=== PATIENT | male | born 1955 | race Caucasian/White ===

== ENCOUNTER 2022-05-06 06:44 | Inpatient (IN) ==
[2022-05-06] MEDS ORDERED: *HR* Propofol 200 MG/20 ML VIAL IVP ONE (07:27)
[2022-05-06] MEDS ORDERED: *HR* Midazolam HCl 2 MG/2 ML VIAL ONE (07:27)
[2022-05-06] MEDS ORDERED: *HR* FentaNYL (PF) 100 MCG/2 ML VIAL ONE (07:27)
[2022-05-06] MEDS ORDERED: Lidocaine -MPF 2% 5 ML VIAL ONE (07:31)
[2022-05-06] MEDS ORDERED: *HR* Rocuronium Bromide 50 MG/5 ML VIAL ONE ×2 (07:31→08:53)
[2022-05-06] MEDS ORDERED: *HR* Succinylcholine 200 MG/10 ML VIAL IVP ONE (07:31)
[2022-05-06] MEDS ORDERED: Ketamine HCL *QUVA* 50mg (1mL) SYRINGE ONE (07:32)
[2022-05-06] MEDS ORDERED: Acetaminophen IV 1,000 MG/100 ML BAG IVPB ONE ×2 (07:32→07:55)
[2022-05-06] MEDS ORDERED: *HR* OxyCODONE Immed Rel 5 MG TABLET PO PRN ×2 (07:40→15:32)
[2022-05-06] MEDS ORDERED: CeFAZolin Syr 2,000MG/20 ML 2,000 MG/20 ML SYRINGE IVPB ONE (07:40)
[2022-05-06] MEDS ORDERED: *HR* HYDROmorphone PF 0.5 MG/0.5 ML SYRINGE IVP PRN (07:40)
[2022-05-06] MEDS ORDERED: Ondansetron 4 MG/2 ML VIAL IVP PRN ×2 (07:40→15:32)
[2022-05-06] MEDS ORDERED: Ringers Solution, Lactated 1,000 ML IVC SCH (07:45)
[2022-05-06] MEDS ORDERED: EPHEDrine 50 MG/ML VIAL ONE (08:51)
[2022-05-06] MEDS ORDERED: Ondansetron 4 MG/2 ML VIAL ONE (08:53)
[2022-05-06] MEDS ORDERED: *HR* HYDROMORPHONE 2 MG/ML VIAL ONE (09:33)
[2022-05-06] MEDS ORDERED: *HR* Magnesium Sulfate 1 GM/2 ML VIAL ONE (10:19)
[2022-05-06] MEDS ORDERED: *HR* Labetalol 20 MG/4 ML SYRINGE IVP ONE (10:57)
[2022-05-06] MEDS ORDERED: *HR* HYDROcodone/Acet 5/325 mg TABLET PO PRN (15:32)
[2022-05-06] MEDS ORDERED: *HR* Belladonna Alkaloids/Opium 30 MG RECTAL SUPPOSITORY RC PRN (15:32)
[2022-05-06] MEDS ORDERED: Naloxone 0.4 MG/ML INJ IVP PRN (15:32)
[2022-05-06] MEDS: *HR* Heparin 5,000 UNIT/ML VIAL SQ SCH (17:02)
[2022-05-06] MEDS: 0.9 % Sodium Chloride 1,000 ML IVC SCH (17:03)
[2022-05-06] MEDS: Acetaminophen IV 1,000 MG/100 ML BAG IVPB SCH (17:07)
[2022-05-06] MEDS: CeFAZolin 2 GM/120 ML BAG IVPB SCH (17:09)
[2022-05-07] MEDS: Acetaminophen IV 1,000 MG/100 ML BAG IVPB SCH ×2 (00:55→09:44)
[2022-05-07] MEDS: 0.9 % Sodium Chloride 1,000 ML IVC SCH (00:55)
[2022-05-07] MEDS: CeFAZolin 2 GM/120 ML BAG IVPB SCH (00:55)
[2022-05-07 03:53] LABS: Basophils % 0.1 %; Immature Granulocytes % 0.5 % (0-4); Red Blood Count 4.96 M/mcL (4.19-5.50)
[2022-05-07 03:55] LABS: Hematocrit 34.8 % (37.5-50.1); Hemoglobin 10.1 g/dL (12.9-16.9); Immature Platelets 10.4 % (1.1-6.1); Lymphocytes # 0.8 K/mcL (0.6-4.6); Lymphocytes % 7.7 %; Mean Corpuscular Hemoglobin 20.4 pg (28.0-33.3); Mean Corpuscular Volume 70.2 fL (83.0-100.0); Monocytes # 0.6 K/mcL (0.0-1.3); Monocytes % 5.3 %; Neutrophils # 9.4 K/mcL (1.6-8.9); Platelet Count 181 K/mcL (140-400); Red Cell Distribution Width 19.3 % (11.5-14.5); Segmented Neutrophils % 86.4 %; White Blood Count 10.9 K/mcL (4.3-11.1)
[2022-05-07 04:12] LABS: BUN/Creatinine Ratio 11 (6-26); Blood Urea Nitrogen 15 mg/dL (8-23); Calcium 8.7 mg/dL (8.6-10.3); Carbon Dioxide 22 mEq/L (23-29); Chloride 103 mEq/L (98-107); Glucose 139 mg/dL (70-105); Osmolality,Calculated 283 (280-300); Potassium 4.2 mEq/L (3.5-5.1); Sodium 135 mEq/L (136-145); eGFR For African Americans > 60 (> 60); eGFR For Non-African Americans 51 (> 60)
[2022-05-07 04:19] LABS: Anisocytosis 2+ (Not Present); Hypochromasia Present (Not Present)
[2022-05-07 04:20] LABS: Platelet Estimate Normal (Normal)
[2022-05-07] MEDS: *HR* Heparin 5,000 UNIT/ML VIAL SQ SCH (06:07)
[2022-05-07 06:56] VITALS: BP 124/80; PULSE 89; TEMP 98.1; O2SAT 94
== END 2022-05-07 11:08 | disposition home or self-care (01) | DRG 661 ==
LOC: SAMDAY 06:44 → 3ANU 07:43
PROVIDERS: ADMIT Urology; ATTEND Urology